=== PATIENT | male | born 1960 | race Two or more races ===

== ENCOUNTER → 2024-12-16 | Outpatient (CLI) | payer MEDICARE, MEDICAID, SELFPAY ==
--- NOTE | 2024-12-16 12:33 | XR_ITS ---
Examination: Ankle Bilateral, 4 views Technique one AP lateral right and left ankle 4 views Exam date and time: December 16, 2024 1437 hours Date and time of exam: December 16, 2024 at 1453 hours INDICATIONS: Ankle pain months Findings: Bilateral advanced osteoarthritis tibiotalar joints with joint narrowing subarticular sclerosis and osteophyte formation 2 mm bilateral plantar bony calcaneal spurs No fractures IMPRESSION: Bilateral advanced osteoarthritis tibiotalar joint
== END | disposition home or self-care (01) ==
LOC: SDIM 12:09
PROVIDERS: PCP Chiropractor; Referring Provider Chiropractor; Visit Provider Chiropractor
DX: M19.072 Primary osteoarthritis, left ankle and foot (principal); M19.071 Primary osteoarthritis, right ankle and foot
CPT/HCPCS: 73600

== ENCOUNTER → 2025-02-18 | Outpatient (CLI) | payer MEDICARE, MEDICAID, SELFPAY ==
--- NOTE | 2025-02-18 09:03 | XR_ITS ---
Examination: Cervical spine 4 views Technique one AP lateral swimmer's lateral AP odontoid cervical spine 4 views Date and time: February 18, 2025 0924 hours INDICATIONS: Neck pain radiating down both shoulders beginning one week ago. FINDINGS: Severe osteopenia. No acute cervical fracture. Intact odontoid. Moderate to advanced degenerative disc disease C5-C6, C6-C7 with posterior osteophyte formation IMPRESSION: Moderate to advanced degenerative disc disease C5-C6, C6-C7
== END | disposition home or self-care (01) ==
PROVIDERS: PCP Physician Assistant; Referring Provider Physician Assistant; Visit Provider Physician Assistant
DX: M50.322 Other cervical disc degeneration at C5-C6 level (principal)
CPT/HCPCS: 72040

== ENCOUNTER → 2025-05-05 | Outpatient (CLI) | payer MEDICARE, MEDICAID, SELFPAY ==
--- NOTE | 2025-05-05 12:40 | XR_ITS ---
Examination: Bone densitometry Date and time of exam:May 05, 2025 1324 hours INDICATIONS: Diabetic, 64-year-old male with diagnosis age related osteoporosis Technique: Lumbar spine and hip total bone mineralization values of an calculated. Peak reference and age match control results have been displayed. Findings: Lumbar spine total bone mineralization is1.261 gm/cm2. This is 1.5 standard deviations above peak reference. This is 2.3 standard deviations above age-matched controls. Hip total bone mineralization is 1.049 gm/cm2 This is 0.0 standard deviations at peak reference. This is 0.5 standard deviations above age-matched controls Impression: There is normal mineralization based on lumbar spine measurements. There is osteopenia based on hip measurements
== END | disposition home or self-care (01) ==
PROVIDERS: PCP Physician Assistant; Referring Provider Physician Assistant; Visit Provider Physician Assistant
DX: M85.89 Other specified disorders of bone density and structure, multiple sites (principal)
CPT/HCPCS: 77080